=== PATIENT | female | born 1995 | race Caucasian/White ===

== ENCOUNTER 2024-06-02 11:52 | Inpatient (IN) | payer OTHER ==
[~2024-06-02] VITALS: Ht 167.6 cm; Wt 108.9 kg
[2024-06-03] MEDS ORDERED: LACTATED RINGER'S 1,000 ML IV SCH
[2024-06-03] MEDS ORDERED: CALCIUM CARBONATE 500 MG CHEW PO PRN
[2024-06-03] MEDS ORDERED: MAGNESIUM HYDROXIDE/AL HYDROX 30 ML CUP PO PRN
[2024-06-03] MEDS ORDERED: miSOPROStoL 25 MCG TAB PV SCH
[2024-06-03] MEDS ORDERED: OXYTOCIN/DEXTROSE 5% 20 UNITS/100 ML BAG IV SCH (00:15)
[2024-06-03 01:07] LABS: AMPHETAMINES, URINE NEGATIVE (NEGATIVE); BARBITURATES, URINE NEGATIVE (NEGATIVE); BENZODIAZEPINE, URINE NEGATIVE (NEGATIVE); BUPRENORPHINE, URINE NEGATIVE (NEGATIVE); CANNABINOID, URINE NEGATIVE (NEGATIVE); COCAINE, URINE NEGATIVE (NEGATIVE); ECSTASY, URINE NEGATIVE (NEGATIVE); FENTANYL, URINE NEGATIVE (NEGATIVE); METHADONE, URINE NEGATIVE (NEGATIVE); OPIATES, URINE NEGATIVE (NEGATIVE); OXYCODONE, URINE NEGATIVE (NEGATIVE); PHENCYCLIDINE, URINE NEGATIVE (NEGATIVE)
[2024-06-03 04:23] LABS: HEMATOCRIT 33.7 % (35.0-50.0); HEMOGLOBIN 11.5 g/dL (12.0-18.0); MCH 30.8 (27-36); MCV 90.4 fl (81-99); RBC 3.73 M/ul (4.3-5.7); RDW 13.1 (10.5-15.0)
[2024-06-03 06:01] LABS: ABO A; ANTIBODY SCREEN NEGATIVE; RH POSITIVE
[2024-06-03] MEDS ORDERED: LIDOCAINE HCL 2% 5 ML SDV ONE ×2 (10:08→21:13)
[2024-06-03] MEDS ORDERED: ROPIVACAINE 0.2% 200 ML BAG ONE (10:09)
[2024-06-03] MEDS ORDERED: dexmedeTOMIDine HCl 200 MCG/2 ML VIAL ONE ×3 (10:09→21:12)
[2024-06-03] MEDS ORDERED: BUPIVACAINE HCL 0.25% 10 ML SDV INJ ONE (10:09)
[2024-06-03] MEDS ORDERED: LACTATED RINGER'S 2,000 ML IV ONE (11:00)
[2024-06-03] MEDS ORDERED: ePHEDrine sulfate 5 MG/ML SYRINGE IV PRN (11:00)
[2024-06-03] MEDS ORDERED: ROPIVACAINE 0.2% 200 ML BAG EPIDURAL SCH ×2 (11:00)
[2024-06-03] MEDS ORDERED: LACTATED RINGER'S 500 ML IV PRN (11:00)
[2024-06-03] MEDS ORDERED: OXYTOCIN/0.9 % SODIUM CHLORIDE 500 ML IV SCH (13:00)
[2024-06-03] MEDS ORDERED: fentaNYL citrate 100 MCG/2 ML VIAL ONE ×2 (15:50→21:12)
[2024-06-03] MEDS ORDERED: Ropivacaine HCl 0.5% 30 ML VIAL ONE ×2 (15:50→21:12)
[2024-06-04] MEDS ORDERED: ACETAMINOPHEN 325 MG TAB PO PRN (05:45)
[2024-06-04] MEDS ORDERED: LIDOCAINE 2% VISCOUS 6 ML SYR TOP ONE ×2 (05:45)
[2024-06-04] MEDS ORDERED: MAGNESIUM HYDROXIDE 30 ML UDC PO PRN (05:45)
[2024-06-04] MEDS ORDERED: CALCIUM CARBONATE 500 MG CHEW PO PRN (05:45)
[2024-06-04] MEDS ORDERED: HYDROCORTISONE ACETATE 25 MG SUPP PR PRN (05:45)
[2024-06-04] MEDS ORDERED: WITCH HAZEL/GLYCERIN 1 EA PAD TOP PRN (05:45)
[2024-06-04] MEDS ORDERED: OXYTOCIN/0.9 % SODIUM CHLORIDE 500 ML IV SCH (05:45)
[2024-06-04] MEDS ORDERED: IBUPROFEN 600 MG TAB PO PRN (05:45)
[2024-06-04] MEDS ORDERED: BENZOCAINE 60 ML AEROSOL TOP PRN (05:45)
[2024-06-04] MEDS ORDERED: HYDROCODONE/ACETA 5/325 TAB PO PRN (05:45)
[2024-06-04] MEDS ORDERED: MAGNESIUM HYDROXIDE/AL HYDROX 30 ML CUP PO PRN (05:45)
[2024-06-04] MEDS ORDERED: SENNOSIDES/DOCUSATE 1 EA TAB PO SCH (09:00)
[2024-06-05 05:32] LABS: HEMATOCRIT 29.3 % (35.0-50.0); HEMOGLOBIN 9.8 g/dL (12.0-18.0); MCH 30.4 (27-36); MCHC 33.5 g/dl (30-36); MCV 90.6 fl (81-99); RBC 3.23 M/ul (4.3-5.7); RDW 13.7 (10.5-15.0)
== END 2024-06-05 12:10 | disposition home or self-care (01) | DRG 768 ==
LOC: FBC 06-03 00:03
PROVIDERS: ADMIT Obstetrics & Gynecology; ATTEND Obstetrics & Gynecology
PROC: 10D07Z8 Extraction of Products of Conception, Other, Via Natural or Artificial Opening (ICD-10-PCS; principal; 2024-06-04)
PROC: 0DQR0ZZ Repair Anal Sphincter, Open Approach (ICD-10-PCS; 2024-06-04)
PROC: 10907ZC Drainage of Amniotic Fluid, Therapeutic from Products of Conception, Via Natural or Artificial Opening (ICD-10-PCS; 2024-06-04)
PROC: 3E0R3BZ Introduction of Anesthetic Agent into Spinal Canal, Percutaneous Approach (ICD-10-PCS; 2024-06-04)
PROC: 00HU03Z Insertion of Infusion Device into Spinal Canal, Open Approach (ICD-10-PCS; 2024-06-04)
DX: O66.0 Obstructed labor due to shoulder dystocia (principal); Z37.0 Single live birth; O70.20 Third degree perineal laceration during delivery, unspecified; O76 Abnormality in fetal heart rate and rhythm complicating labor and delivery; Z3A.39 39 weeks gestation of pregnancy; Z87.440 Personal history of urinary (tract) infections; Z90.89 Acquired absence of other organs; Z98.890 Other specified postprocedural states; O99.214 Obesity complicating childbirth; E88.819 Insulin resistance, unspecified; O99.284 Endocrine, nutritional and metabolic diseases complicating childbirth; Z79.84 Long term (current) use of oral hypoglycemic drugs
CPT/HCPCS: 01960; 36415; 80307; 82803; 85027; 86850; 86900; 86901; A9270; J2003; J2590; J2795; J3010